=== PATIENT | female | born 1955 | race Caucasian/White ===

== ENCOUNTER → 2017-11-29 | Outpatient (CLI) | payer BC ==
[~2017-11-29] MED LIST: ABAT250V; Citrate Of Mag300 ML; Estring1 EACH; MULT50L
[2017-11-29 12:21] LABS: Microalbumin, Random Urine <5.000 mg/L (0.000-20.000); Protein, Urine Random <5.0 mg/dL (0.0-11.9)
== END ==
LOC: LAB SHORT 09:00
PROVIDERS: Internal Medicine
DX: N18.3 Chronic kidney disease, stage 3 (moderate) (principal)
CPT/HCPCS: 82043; 82570; 84156

== ENCOUNTER → 2019-05-20 | Outpatient (CLI) | payer BC | END | disposition home or self-care (01) | LOC: LAB SHORT 11:00 → PLD 11:00 | DX: M67.471 Ganglion, right ankle and foot (principal) | CPT/HCPCS: 88305 ==

== ENCOUNTER → 2019-11-15 | Outpatient (CLI) | payer BC | END | disposition home or self-care (01) | LOC: LAB SHORT 07:00 → LAB 07:00 → LAB FUT 11-10 12:15 | DX: R10.13 Epigastric pain (principal) | CPT/HCPCS: 87338 ==

== ENCOUNTER 2020-03-12 06:49 | Day surgery (SDC) | payer BC ==
[~2020-03-12] VITALS: Ht 165.1 cm; Wt 57.6 kg
--- NOTE | 2020-03-12 08:47 | NUR ---
03/12/20 0847 Ronel Alegre 4CC NORMAL SALINE INJECTED INTO ASCENDING COLON FOR POLYPECTOMY
== END 2020-03-12 09:28 | disposition home or self-care (01) ==
LOC: ORSCSDS 06:49
PROVIDERS: Internal Medicine Gastroenterology
PROC: 0DBN8ZX Excision of Sigmoid Colon, Via Natural or Artificial Opening Endoscopic, Diagnostic (ICD-10-PCS; principal; 2020-03-12 08:00)
PROC: 0DBH8ZX Excision of Cecum, Via Natural or Artificial Opening Endoscopic, Diagnostic (ICD-10-PCS; principal; 2020-03-12 08:00)
PROC: 0DBK8ZX Excision of Ascending Colon, Via Natural or Artificial Opening Endoscopic, Diagnostic (ICD-10-PCS; principal; 2020-03-12 08:00)
PROC: 0DB98ZX Excision of Duodenum, Via Natural or Artificial Opening Endoscopic, Diagnostic (ICD-10-PCS; principal; 2020-03-12 08:00)
PROC: 0DB68ZX Excision of Stomach, Via Natural or Artificial Opening Endoscopic, Diagnostic (ICD-10-PCS; principal; 2020-03-12 08:00)
PROC: 0DBL8ZX Excision of Transverse Colon, Via Natural or Artificial Opening Endoscopic, Diagnostic (ICD-10-PCS; principal; 2020-03-12 08:00)
DX: R10.13 Epigastric pain (principal); D12.2 Benign neoplasm of ascending colon; D12.3 Benign neoplasm of transverse colon; K63.5 Polyp of colon; K64.4 Residual hemorrhoidal skin tags; Z86.010 Personal history of colon polyps; E03.9 Hypothyroidism, unspecified; E78.00 Pure hypercholesterolemia, unspecified; Z12.11 Encounter for screening for malignant neoplasm of colon; Z87.891 Personal history of nicotine dependence
CPT/HCPCS: 88305; 88342; J0330; J0461; J2405; J2704; J7120

== ENCOUNTER → 2020-11-04 | Outpatient (CLI) | payer BC ==
[2020-11-04 08:58] LABS: Source, Urine Clean Catch
[2020-11-04 11:23] LABS: Appearance, Urine Clear (Clear); Bilirubin, Urine Neg (Neg); Blood, Urine Neg (Neg); Color, Urine Yellow (P-Yellow); Glucose Qualitative, Urine Neg (Neg); Ketones, Urine Neg (Neg); Leukocyte Esterase, Urine Neg (Neg); Nitrite, Urine Neg (Neg); Protein, Urine Neg (Neg); Specific Gravity, Urine 1.005 (1.003-1.022); Urobilinogen, Urine NORM (Normal)
== END | disposition home or self-care (01) ==
LOC: LAB 08:56
PROVIDERS: Naturopath
DX: R31.9 Hematuria, unspecified (principal)
CPT/HCPCS: 81003

== ENCOUNTER 2023-03-14 07:53 | Day surgery (SDC) | payer MEDICARE, BC ==
[~2023-03-14] VITALS: Ht 165.1 cm; Wt 56.2 kg
[2023-03-14] MEDS ORDERED: ZINC15 (08:09)
[2023-03-14] MEDS ORDERED: CALCIUM CIT 311 EAC7 (08:09)
[2023-03-14] MEDS ORDERED: VITAMIN D310 MC4 (08:10)
[2023-03-14] MEDS ORDERED: Vitamin B Comple1 EA (08:10)
[2023-03-14] MEDS ORDERED: MANGANESE (08:10)
[2023-03-14] MEDS ORDERED: T3/T4 (08:11)
[2023-03-14] MEDS ORDERED: BORON CITRATE1 GM (08:11)
[2023-03-14] MEDS ORDERED: DHEA ×2 (08:12)
[2023-03-14] MEDS ORDERED: BIEST (08:12)
[2023-03-14] MEDS ORDERED: PROGESTER (08:12)
[2023-03-14 10:07] VITALS: BP 110/70
--- NOTE | 2023-03-14 10:12 | NUR ---
03/14/23 1012 Jolie Jonas IV REMOVED AT 1000 INTACT AND WNL
== END 2023-03-14 10:12 | disposition home or self-care (01) ==
LOC: ORSCSDS 07:53
PROVIDERS: Internal Medicine Gastroenterology
PROC: 0DBL8ZX Excision of Transverse Colon, Via Natural or Artificial Opening Endoscopic, Diagnostic (ICD-10-PCS; principal; 2023-03-14 09:15)
DX: Z12.11 Encounter for screening for malignant neoplasm of colon (principal); D12.3 Benign neoplasm of transverse colon; Z86.010 Personal history of colon polyps; E03.9 Hypothyroidism, unspecified; E78.00 Pure hypercholesterolemia, unspecified; N18.30 Chronic kidney disease, stage 3 unspecified; K21.9 Gastro-esophageal reflux disease without esophagitis; Z87.891 Personal history of nicotine dependence
CPT/HCPCS: 88305; J2704; J7120

== ENCOUNTER → 2023-11-29 | Outpatient (CLI) | payer MEDICARE, BC ==
[~2023-11-29] MED LIST changes: +BIEST; +BORON CITRATE1 GM; +CALCIUM CIT 311 EAC7; +DHEA; +MANGANESE; +PROGESTER; +T3/T4; +VITAMIN D310 MC4; +Vitamin B Comple1 EA; +ZINC15
[2023-11-29 10:40] LABS: Source, Urine Clean Catch
[2023-11-29 13:14] LABS: Appearance, Urine Clear (Clear); Bilirubin, Urine Neg (Neg); Blood, Urine 1+ (Neg); Color, Urine Yellow (P-Yellow); Glucose Qualitative, Urine Neg (Neg); Ketones, Urine Neg (Neg); Leukocyte Esterase, Urine Neg (Neg); Nitrite, Urine Neg (Neg); Protein, Urine Neg (Neg); Specific Gravity, Urine 1.015 (1.003-1.022); Urobilinogen, Urine NORM (Normal)
[2023-11-29 13:22] LABS: White Blood Cells, Urine 0-2 /hpf (0-5)
[2023-11-29 13:23] LABS: Bacteria Rare /hpf; Squamous Epithelial Cells Few /hpf (Few)
[2023-11-29 13:40] LABS: Microalb/Creat Ratio UR, Rand Unable to Calculate mg/g (0.000-30.000); Microalbumin, Random Urine <5.000 mg/L (0.000-20.000)
== END | disposition home or self-care (01) ==
LOC: LAB 10:37 → LAB SHORT 10:37
PROVIDERS: Naturopath
DX: N18.31 Chronic kidney disease, stage 3a (principal)
CPT/HCPCS: 81001; 82043; 82570

== ENCOUNTER 2024-09-25 07:32 | Day surgery (SDC) | payer MEDICARE, BC ==
[~2024-09-25] VITALS: Ht 165.1 cm; Wt 56.3 kg
[2024-09-25] MEDS ORDERED: FAMO20 (08:10)
[2024-09-25] MEDS ORDERED: PROGESTERONE CREAM (08:11)
[2024-09-25] MEDS ORDERED: propofoL 50 ML IV ONE (08:31)
[2024-09-25] MEDS ORDERED: Lactated Ringer's 1,000 ML IV ONE ×2 (08:31→08:55)
[2024-09-25 10:02] VITALS: BP 130/82
== END 2024-09-25 09:59 | disposition home or self-care (01) ==
LOC: ORSCSDS 07:32
DX: R10.11 Right upper quadrant pain (principal); R12 Heartburn; Z80.0 Family history of malignant neoplasm of digestive organs; K29.70 Gastritis, unspecified, without bleeding; Z79.899 Other long term (current) drug therapy
CPT/HCPCS: 88305; 88342; J2704; J7120

== ENCOUNTER → 2025-01-01 | Outpatient (CLI) | payer MEDICARE, BC ==
[~2025-01-01] MED LIST changes: +FAMO20; +PROGESTERONE CREAM
[2025-01-03 14:46] LABS: HSV 1 SUBTYPE BY PCR Detected; HSV 2 SUBTYPE BY PCR Not Detected
[2025-01-04 15:53] LABS: VARICELLA-ZOSTER VIRUS BY PCR Not Detected
== END ==
LOC: LAB 14:55 → LAB SHORT 14:55
PROVIDERS: General Practice
DX: L08.0 Pyoderma (principal)
CPT/HCPCS: 87070; 87205; 87529; 87798